=== PATIENT | female | born 1995 | race Caucasian/White ===

== ENCOUNTER 2020-07-19 07:56 | Inpatient (IN) | payer MEDICAID ==
[2020-07-19] MEDS ORDERED: RINGERS SOLUTION,LACTATED 1,000 ML IV ONE (08:32)
[2020-07-19 09:01] LABS: APPEARANCE,URINE CLEAR; BILIRUBIN,URINE NEGATIVE (NEGATIVE); COLOR,URINE YELLOW; GLUCOSE, URINE NEGATIVE (NEGATIVE); KETONES,URINE NEGATIVE (NEGATIVE); LEUKOCYTE ESTERASE,URINE NEGATIVE (NEGATIVE); NITRITE,URINE NEGATIVE (NEGATIVE); PROTEIN,URINE 100 mg/dL (NEGATIVE); UROBILINOGEN,URINE NEGATIVE mg/dL (<2.0)
[2020-07-19] MEDS: RINGERS SOLUTION,LACTATED 1,000 ML IV PRN ×2 (09:09→13:08)
[2020-07-19 09:19] LABS: URINE AMPHETAMINES SCREEN NEGATIVE; URINE BARBITURATES SCREEN NEGATIVE; URINE BENZODIAZEPINES SCREEN NEGATIVE; URINE COCAINE SCREEN NEGATIVE; URINE MARIJUANA (THC) SCREEN NEGATIVE; URINE METHADONE SCREEN NEGATIVE; URINE PHENCYCLIDINE SCREEN NEGATIVE
[2020-07-19] MEDS ORDERED: MISOPROSTOL 0.2 MG TABLET ONE (09:24)
[2020-07-19] MEDS ORDERED: OXYTOCIN/0.9 % SODIUM CHLORIDE 30 UNIT/500 ML RTUINJ ONE (09:24)
[2020-07-19] MEDS ORDERED: OXYTOCIN 10 UNIT/ML VIAL ONE (09:24)
[2020-07-19] MEDS ORDERED: ONDANSETRON HCL INJ/PF 4 MG/2 ML SDV ONE ×2 (09:24→16:50)
[2020-07-19 09:58] LABS: ABSOLUTE EOSINOPHILS # (AUTO) 0.1 10^3/uL (0.0-0.6); ABSOLUTE LYMPHOCYTES (AUTO) 1.8 10^3/uL (0.5-4.7); ABSOLUTE MONOCYTES (AUTO) 0.7 10^3/uL (0.1-1.4); BASOPHILS % (AUTO) 0.2 % (0-2); HEMATOCRIT 31.2 % (36.0-47.0); HEMOGLOBIN 10.5 g/dL (12.0-15.5); LYMPHOCYTES % (AUTO) 23.3 % (13-45); MEAN CORPUSCULAR HEMOGLOBIN 24.9 pg (27.0-33.4); MEAN CORPUSCULAR HGB CONC 33.8 g/dL (32.0-36.0); MEAN CORPUSCULAR VOLUME 74 fl (80-97); MONOCYTES % (AUTO) 9.6 % (3-13); PLATELET COUNT 152 10^3/uL (150-450); RED BLOOD COUNT 4.24 10^6/uL (3.72-5.28); RED CELL DISTRIBUTION WIDTH 17.2 % (11.5-14.0); SEGMENTED NEUTROPHILS % (AUTO) 65.9 % (42-78); TOTAL CELLS COUNTED % (AUTO) 100 %; WHITE BLOOD COUNT 7.6 10^3/uL (4.0-10.5)
[2020-07-19] MEDS ORDERED: EPHEDRINE SULFATE INJ 50 MG/1 ML AMPULE ONE (10:19)
[2020-07-19] MEDS ORDERED: ROPIVACAINE HCL 0.2% INJ/PF (2 MG/ML) 20 ML SDV ONE ×2 (10:19→16:45)
[2020-07-19] MEDS ORDERED: FENTANYL/BUPIVACAINE/NS/PF 300 MCG/150 ML RTUINJ EPI ONE (10:19)
--- NOTE | 2020-07-19 11:50 | Admission Physical ---
Datetime Report Generated by CPN: 07/19/2020 11:50 CURRENT ADMISSION Chief Complaint: Uterine Contractions; Suspected Ruptured Membranes Chief Complaint Other: water broke Indication for Induction: Post Dates Admit Impression : Postterm, Intrauterine ; Active Labor Admit Plan: Admit to Unit; Initiate Labor Protocol ALLERGIES Medication Allergies: Yes Medication Allergies: SULFA Latex: No Latex Allergies Food Allergies: n/a Environmental Allergies: n/a OBSTETRICAL HISTORY EDC: 07/15/2020 00:00 : 2 Para: 0 Term: 0 : 0 SAB: 1 IAB: 0 Ectopic: 0 Livin Cesareans: 0 VBACs: 0 Multiple Births: 0 Gestational Diabetes: No Rh Sensitization: No Incompetent Cervix: No RONNIE: No Infertility: No ART Treatment: No Uterine Anomaly: No IUGR: No Hx Previous C/S: No Macrosomia: No Hx Loss/Stillborn: No PIH: No Hx : No Placenta Previa/Abruption: No Depression/PP Depression: No PTL/PROM: No Post Hemorrhage: No Current Procedures: Ultrasound Obstetrical History Comments: G1- SAB G2- current SEE RECORDS Alcohol: No Marijuana : No Cocaine: No Other Illicit Drugs: No Cigarettes: Never Smoker. 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 Heart Disease: No Hosp/Surgery: No Autoimmune Disorder: No Anesthetic Complications: No Kidney Disease: No Abnormal Pap Smear: No Neuro/Epilepsy: No Psychiatric Disorders: No Other Medical Diseases: No Hepatitis/Liver Disease: No Significant Family History: No Varicosities/Phlebitis: No Trauma/Violence : No Thyroid Dysfunction: No Medical History Comments: childhood asthma outgrew age 3 INFECTIOUS HISTORY Gonorrhea: No Genital Herpes: No Chlamydia: No Tuberculosis: No Syphilis: No Hepatitis: No HIV/AIDS Exposure: No Rash or Viral Illness: No HPV: No PHYSICAL EXAM General: Normal HEENT: Deferred Neurologic: Normal Thyroid: Deferred Heart: Normal Lungs: Normal Breast: Deferred Back: Deferred Abdomen: Normal Genitourinary Exam: Normal Extremities: Normal DTRs: Deferred Pelvic Type: Adequate Vital Signs: Reviewed MEMBRANES Membranes: Ruptured FETUS A EGA: 40.4 Monitoring: External US FHR- Baseline: 140 Accelerations: 15X15 Decelerations: None FHR Category: Category I Presentation: Vertex Admit Comment: presented with c/o contractions and leaking fluid SROM at 5am has epidural now, last exam 4cm per RN anticipate PLANS FOR LABOR AND DELIVERY Labor and Delivery: None Pain Management: Epidural Feeding Preference: Formula Benefit of Breast Feed Discussed: Yes Circumcision: Yes INFORMED CONSENT Assignment: Wilber Dutta MD Signature: with User ID: [email or web address] : with User ID: [email or web address]
[2020-07-19] MEDS ORDERED: ACETAMINOPHEN 1,000 MG/100 ML RTUPB IV ONE (16:42)
[2020-07-19] MEDS: IBUPROFEN 800 MG TABLET PO SCH (19:32)
[2020-07-19] MEDS ORDERED: IBUPROFEN 800 MG TABLET ONE (19:36)
[2020-07-19] MEDS ORDERED: PROMETHAZINE HCL INJ 25 MG/1 ML VIAL IV PRN (19:46)
[2020-07-19] MEDS ORDERED: DIBUCAINE 1% OINTMENT 28 GM TP PRN (19:46)
[2020-07-19] MEDS ORDERED: PROMETHAZINE HCL 25 MG SUPP.RECT PR PRN (19:46)
[2020-07-19] MEDS ORDERED: DIPH/PERTUSS(ACELL)/TETANUS VAC/PF 0.5 ML SYR (>=10YO) IM PRN (19:46)
[2020-07-19] MEDS ORDERED: DIPHENHYDRAMINE HCL 25 MG CAPSULE PO PRN (19:46)
[2020-07-19] MEDS ORDERED: PROMETHAZINE HCL 25 MG TABLET PO PRN (19:46)
[2020-07-19] MEDS ORDERED: BENZOCAINE/MENTHOL AEROSOL SPRAY 56 ML TOP PRN (19:46)
[2020-07-19] MEDS ORDERED: PSEUDOEPHEDRINE HCL 30 MG TABLET PO PRN (19:46)
[2020-07-19] MEDS ORDERED: OXYTOCIN/0.9 % SODIUM CHLORIDE 30 UNIT/500 ML RTUINJ IV PRN (19:46)
[2020-07-19] MEDS ORDERED: GLYCERIN/WITCH HAZEL LEAF 1 EACH MED..WIPE TP PRN (19:46)
[2020-07-19] MEDS ORDERED: NA PHOS,M-B/NA PHOS,DI-BA (ADULT) 133 ML ENEMA PR PRN (19:46)
[2020-07-19] MEDS ORDERED: ZOLPIDEM TARTRATE 5 MG TABLET PO PRN (19:46)
[2020-07-19] MEDS ORDERED: ACETAMINOPHEN WITH CODEINE #3 TABLET PO PRN (19:46)
[2020-07-19] MEDS ORDERED: ACETAMINOPHEN 650 MG SUPP.RECT PR PRN (19:46)
[2020-07-19] MEDS ORDERED: MEASLES,MUMPS&RUBELLA VACC/PF 0.5 ML VIAL SUBCUT PRN (19:46)
[2020-07-19] MEDS ORDERED: MAGNESIUM HYDROXIDE SUSP 30 ML UDCUP PO PRN (19:46)
[2020-07-19] MEDS ORDERED: METHYLERGONOVINE MALEATE INJ/PF 0.2 MG/1 ML AMPULE IM ONE (21:10)
[2020-07-19] MEDS ORDERED: METHYLERGONOVINE MALEATE INJ/PF 0.2 MG/1 ML AMPULE ONE (21:15)
[2020-07-19] MEDS ORDERED: PROMETHAZINE HCL INJ 25 MG/1 ML VIAL ONE (21:31)
[2020-07-19] MEDS ORDERED: ACETAMINOPHEN 325 MG TABLET ONE (23:15)
--- NOTE | 2020-07-19 23:25 | Delivery Summary ---
Del Sum A-C Datetime Report Generated by CPN: 07/19/2020 23:24 DELIVERY PERSONNEL DELIVERY PERSONNEL: [id number] Delivery Doctor:: Wilber Dutta MD Labor and Delivery Nurse:: Tesha Lopez RNfoot specialist Nurse:: Sanjuana Theodore RN Nursery Nurse:: Nikki Chen RN Accounting Instructor/PROFESSIONAL SECURITY OFFICER: Mary Trevizo, WORLD LANGUAGE TEACHER MATERNAL INFORMATION Delivery Anesthesia: Epidural Medications After Delivery: Pitocin 30 Units in 500ml NS/D5W; Methergine 0.2mg IM; Cytotec 1000mcg Per Rectum/Vagina Delivery QBL: 250 Maternal Complications: None LABOR SUMMARY EDC: 07/15/2020 00:00 No. Babies in Womb: 1 Attempted: No Labor Anesthesia: Epidural LABOR INFORMATION Reason for Induction: Not Applicable Onset of Labor: 07/19/2020 15:02 Complete Dilatation: 07/19/2020 17:42 Oxytocin: N/A Group B Beta Strep: negative Antibiotics # of Doses: 0 Name of Antibiotic Given: n/a Steroids Given: None Reason Steroids Not Administered: Not Applicable MEMBRANES Membranes Rupture Method: Spontaneous Rupture of Membranes: 07/19/2020 05:00 Length of Rupture (hr): 14.47 Amniotic Fluid Color: Clear Amniotic Fluid Amount: None Amniotic Fluid Odor: Normal STAGES OF LABOR Stage 1 hr: 2 Stage 1 min: 40 Stage 2 hr: 1 Stage 2 min: 46 Stage 3 hr: 0 Stage 3 min: 4 Total Time in Labor hr: 4 Total Time in Labor min: 30 VAGINAL DELIVERY Episiotomy: None Laceration #1: Perineal Laceration Extension #1: First Degree Laceration Repair: Yes Laceration Repair Note: repaired with 2-0 vicvryy Sponge Count Correct: Yes Sharps Count Correct: Yes CSECTION DELIVERY Primary Indication: N/A Secondary Indication: N/A CSection Incidence: N/A Labor: N/A Elective: N/A CSection Incision: N/A BABY A INFORMATION Infant Delivery Date/Time: 07/19/2020 19:28 Method of Delivery: Vaginal Nurse Controlled Delivery: No Born in Route : No : N/A Forceps: N/A Vacuum Extraction: Successful Shoulder Dystocia : No ASSISTED DELIVERY BABY A Catheter Prior to Procedure: Yes Vacuum Number of Pulls: 3 Vacuum Number of PopOffs: 0 Reduce Pressure btwn Ctx: Yes Vacuum Alligator Shear Operator: kiwi Vacuum/Forceps Comment: three pulls over three contractions with no pop offs PRESENTATION/POSITION BABY A Presentation: Cephalic Cephalic Presentation: Vertex Vertex Position: Right Occipital Anterior Breech Presentation: N/A PLACENTA INFORMATION BABY A Placenta Delivery Time : 07/19/2020 19:32 Placenta Method of Delivery: Spontaneous Placenta Status: Delivered SCORES BABY A Heart Rate 1 min: >100 bpm Resp Effort 1 min: Good Cry Reflex Irritability 1 min: Cough or Sneeze or Pulls Away Muscle Tone 1 min: Active Motion Color 1 min: Blue/Pale Resuscitation Effort 1 min: Tactile Stimulation SCORE 1 MIN: 8 Heart Rate 5 min: >100 bpm Resp Effort 5 min: Good Cry Reflex Irritability 5 min: Cough or Sneeze or Pulls Away Muscle Tone 5 min: Active Motion Color 5 min: Body [place], Extremities Blue SCORE 5 MIN: 9 INFORMATION BABY A Gestational Age at Delivery: 40.4 Gestational Status: Full Term- 39- 40.6 Weeks Infant Outcome : Liveborn Condition : Stable Infant Sex: Male IDENTIFICATION BABY A Infant Verification Date/Time: 07/19/2020 20:20 ID Band Number: [id number] Mother's Name Verified: Yes Infant RN Verifying : M April RN/D Bellavance RN WEIGHT/LENGTH BABY A Infant Birthweight (gm): 3922 Weight (lb): 8 Weight (oz): 10 Infant Length (in): 21.50 Infant Length (cm): 54.61 CORD INFORMATION BABY A No. Cord Vessels: 3 Nuchal Cord : N/A Cord Blood Taken: Yes-For Eval (Mom's Blood Type - or O+) Suction: Mouth; Nose ASSESSMENT BABY A Complications: None Physical Findings at Delivery: Within Normal Limits Skin to Skin: Yes Skin to Skin Time (min): 60 Transferred To: Remains with Mother BABY B INFORMATION : N/A SIGNATURES Signature: with User ID: [email or web address] : I was personally available for consultation and serving as supervising physician for the P.
--- NOTE | 2020-07-19 23:25 | Birth Certificate Data ---
Cert Data Datetime Report Generated by CPN: 07/19/2020 23:24 CERTIFICATE DATA 47a. Care: Yes (07/19/2020 08:23:Tesha Lopez RN) 47b. Date of First Visit: 12/12/2003 00:00 (07/19/2020 08:23:Tesha Lopez RN) 47c. Date of Last Visit: 07/17/2020 00:00 (07/19/2020 08:23:Tesha Lopez RN) 47d. Number of Visits: 11 (07/19/2020 08:23:Tesha Lopez RN) 48a. Number of Prev Live Births: 0 (07/19/2020 08:23:Tesha Lopez RN) 48b. Now Livin (07/19/2020 08:23:Tesha Lopez RN) 48c. Live Births Now : 0 (07/19/2020 08:23:QS system process) 48e. Losses: 1 (07/19/2020 08:23:Tesha Lopez RN) 48f. Date of Last Preg Loss: 05/10/2019 00:00 (07/19/2020 08:23:Tesha Lopez RN) RISK FACTORS IN THIS 49a. Diabetes: No (07/19/2020 08:23:Tesha Lopez RN) 49b. Hypertension: No (07/19/2020 08:23:Tesha Lopez RN) 49c. Previous Births: 0 (07/19/2020 08:23:Tesha Lopez RN) 49d. Stillborns: No (07/19/2020 08:23:Tesha Lopez RN) 49d. IUGR: No (07/19/2020 08:23:Tesha Lopez RN) 49e. Infertility Treatment: No (07/19/2020 08:23:Tesha Lopez RN) 49f. Previous Cesareans: 0 (07/19/2020 08:23:Tesha Lopez RN) Mother's Height 50b. Height Inches: 64 (07/19/2020 22:31:QS system process) Mother's Weight 51a. Pre- Weight (lbs): 118 (07/19/2020 08:23:Tesha Lopez RN) 51b. Weight at Delivery (lbs): 150 (07/19/2020 22:31:QS system process) 52. Dt Last Normal Menses Began: 10/09/2019 00:00 (07/19/2020 08:23:Tesha Lopez RN) Infections Present/Treated 53a. Gonorrhea: No (07/19/2020 08:23:Tesha Lopez RN) Results this Hospital Visit : Negative (07/19/2020 08:23:Tesha Lopez RN) 53b. Syphilis: No (07/19/2020 08:23:Tesha Lopez RN) 53c. Chlamydia: No (07/19/2020 08:23:Tesha Lopez RN) Results this Hospital Visit: Negative (07/19/2020 08:23:Tesha Lopez RN) 53d. Hepatitis B: No (07/19/2020 08:23:Tesha Lopez RN) Results this Hospital Visit: Negative (07/19/2020 08:23:Tesha Lopez RN) 53e. Hepatitis C: Negative (07/19/2020 08:23:Tesha Lopez RN) 53h. Mother Tested for HBsAG: Yes (07/19/2020 08:23:Tesha Lopez RN) 53i. Date Tested: 01/22/2020 00:00 (07/19/2020 08:23:Tesha Lopez RN) 53j. Test Result: Negative (07/19/2020 08:23:Tesha Lopez RN) Obstetric Procedures 54a, b, c. Obstetric Procedures: Ultrasound (07/19/2020 08:23:Tesha Lopez RN) Cigarette Smoking Cigarette Smoking: Never Smoker. [id number] (07/19/2020 08:23:Tesha Lopez RN) Onset of Labor 56a. PROM >12 Hrs: 14.47 (07/19/2020 09:35:QS system process) 56b. Precipitous Labor <3 Hrs: 4 (07/19/2020 08:23:QS system process) 56c. Prolonged Labor > 20 Hrs: 4 (07/19/2020 08:23:QS system process) 57a. Induction of Labor: N/A (07/19/2020 08:23:Tesha Lopez RN) 57c. Non-Vertex Presentation A: Vertex (07/19/2020 08:23:ESTELLA Garcia) 57d. Steroids - Lung Mat: None (07/19/2020 08:23:Tesha Lopez RN) 57d. Steroids - Lung Mat: Not Applicable (07/19/2020 08:23:Tesha Lopez RN) 57f. Mat [place] or Temp >100.4: 100.7 (07/19/2020 08:23:ESTELLA Garcia) 57g. Moderate/Heavy Meconium: Clear (07/19/2020 09:35:Tesha Lopez RN) 57h. Intolerance of Labor: N/A (07/19/2020 08:23:ESTELLA Garcia) : N/A (07/19/2020 08:23:Sanjuana Theodore RN) 57i. Epidural/Spinal Anesthesia: Epidural (07/19/2020 08:23:Tesha Lopez, RN) Method of Delivery 58a. Forceps - Unsuccessful A: N/A (07/19/2020 08:23:Fide Bellavance, RNC) 58b. Vacuum - Unsuccessful A: Successful (07/19/2020 08:23:Fide Bellavance, RNC) 58c. Presentation at 58c. Presentation at - A : Vertex (07/19/2020 08:23:Fide Bellavance, RNC) 58c. Presentation at - A : N/A (07/19/2020 08:23:Fide Bellavance, RNC) 58c. Presentation at - A : Cephalic (07/19/2020 08:23:Fide Bellavance, RNC) Final Route and Method of Del 58d. Baby A Route/Delivery: Vaginal (07/19/2020 19:28:Nadege Vargas RN) 58e. Trial of Labor Attempted: No (07/19/2020 08:23:Tesha Lopez RN) 58e. Trial of Labor Attempted A: N/A (07/19/2020 08:23:Tesha Lopez RN) 58e. Trial of Labor Attempted B: N/A (07/19/2020 08:23:Tesha Lopez RN) Maternal Morbidity 59b. 3rd or 4th Degree Lacs: Perineal (07/19/2020 08:23:Wilber Dutta MD ([facility])) Birthweight Baby A: 3922 (07/19/2020 08:23:Sanjuana Theodore RN) 60a. Pounds : 8 (07/19/2020 08:23:QS system process) 60b. Ounces: 10 (07/19/2020 08:23:QS system process) 61. GA at Delivery Baby A: 40.4 (07/19/2020 08:23:Tesha Lopez RN) : Full Term- 39- 40.6 Weeks (07/19/2020 08:23:QS system process) 62a. 5 Minute Baby A: 9 (07/19/2020 08:23:QS system process)
[2020-07-19] MEDS ORDERED: ACETAMINOPHEN 325 MG TABLET PO PRN (23:51)
[2020-07-20] MEDS: METHYLERGONOVINE MALEATE 0.2 MG TABLET PO SCH ×4 (00:18→18:03)
[2020-07-20] MEDS: FAMOTIDINE 20 MG TABLET PO SCH ×3 (01:31→22:38)
[2020-07-20] MEDS: IBUPROFEN 800 MG TABLET PO SCH ×3 (05:31→22:38)
[2020-07-20 08:21] LABS: HEMATOCRIT 24.1 % (36.0-47.0); MEAN CORPUSCULAR HEMOGLOBIN 24.7 pg (27.0-33.4); MEAN CORPUSCULAR HGB CONC 33.8 g/dL (32.0-36.0); MEAN CORPUSCULAR VOLUME 73 fl (80-97); PLATELET COUNT 115 10^3/uL (150-450); RED BLOOD COUNT 3.29 10^6/uL (3.72-5.28); RED CELL DISTRIBUTION WIDTH 17.6 % (11.5-14.0)
[2020-07-20] MEDS: DOCUSATE SODIUM 100 MG CAPSULE PO SCH ×2 (09:14→18:03)
[2020-07-20] MEDS: FERROUS SULFATE 325 MG TABLET PO SCH ×2 (09:14→18:03)
[2020-07-20] MEDS: SENNOSIDES/DOCUSATE 8.6-50 MG 1 EACH TABLET PO SCH (09:14)
[2020-07-20] MEDS: PRENATAL VITAMIN W DHA CAPSULE PO SCH (09:14)
[2020-07-20 09:37] LABS: WHITE BLOOD COUNT 20.4 10^3/uL (4.0-10.5)
--- NOTE | 2020-07-20 09:40 | PDOC PROGRESS REPORT ---
Subjective-OB Progress Note for:: 07/20/20 - PP day #1, pt doing well, denies heavy vaginal bleeding this morning, Hx PPH after delivery. A- /A-, rubella immune. bottlefeeding, Physical Exam (OB) Vital Signs: Temp Pulse Resp BP Pulse Ox 99.2 F 72 17 131/88 H 98 07/20/20 07:38 07/20/20 07:38 07/20/20 07:38 07/20/20 07:38 07/20/20 07:38 Intake & Output 07/19/20 07/20/20 07/21/20 06:59 06:59 06:59 Intake Total 1498 Output Total 250 Balance 1248 Weight 67.8 kg - General General Appearance: Appears well, Alert - PIH/Pre-Eclampsia DTR's: 2 + Clonus: Negative Headache: Absent Epigastric Pain: No Visual Changes: No - Maternal Morbidity 59. Maternal Morbidity (serious complications experinced by the mother associated with labor and delivery: None of the above - Lochia Lochia Amount: Scant < 10 ml Lochia Color: Rubra/Red - Abdomen Description: Soft, Flat Fundal Description: Firm Fundal Height: u/u - u/2 - Respiratory Respiratory Status: No respiratory distress - Abdominal Distension: No distension Tenderness: Nontender - Genitourinary Genitourinary Note: voiding - Extremities Upper extremity: Normal inspection Lower extremities: Normal inspection - Neurological Cognition: Normal Orientation: AAOx4 - Psychological Associated symptoms: Normal affect, Normal mood - Skin Skin Temperature: Warm Skin Moisture: Dry Objective-Diagnostic Laboratory: 07/19/20 07/19/20 09:39 09:39 WBC 7.6 RBC 4.24 Hgb 10.5 L Hct 31.2 L MCV 74 L MCH 24.9 L MCHC 33.8 RDW 17.2 H Plt Count 152 Seg Neutrophils % 65.9 Blood Type A NEGATIVE Antibody Screen NEGATIVE Assessment and Plan(PN) - Assessment and Plan (1) (normal spontaneous vaginal delivery) Is this a current diagnosis for this admission?: Yes (2) PPH ( hemorrhage) Qualifiers: hemorrhage type: delayed hemorrhage Qualified Code(s): O72.2 - Delayed and secondary hemorrhage Is this a current diagnosis for this admission?: Yes (3) Full-term PROM with onset of labor within 24 hours of rupture Is this a current diagnosis for this admission?: Yes Plan:: Watch temp today. CBC pending this morning. Ambulation encouraged. - Time Spent with Patient Time with patient: Less than 15 minutes Medications reviewed and adjusted accordingly: Yes - Disposition Anticipated Discharge Disposition: Home, Self Care Anticipated Discharge Timeframe: within 24 hours
[2020-07-20 09:49] LABS: HEMOGLOBIN 8.1 g/dL (12.0-15.5)
[2020-07-20] MEDS ORDERED: (PENDING PHARMACY ID) (Prenatal Vit,Calc76/Iron/Folic [Prenatabs Rx Tablet] 1 TAB) PO SCH (10:00)
[2020-07-20] MEDS ORDERED: AMPICILLIN SOD/SULBACTAM 3 GM VIAL IV SCH (10:15)
[2020-07-20] MEDS ORDERED: IRON SUCROSE COMPLEX INJ/PF 100 MG/5 ML SDV IV ONE (10:30)
[2020-07-20] MEDS ORDERED: DIPH/PERTUSS(ACELL)/TETANUS VAC/PF 0.5 ML SYR (>=10YO) IM PRN (12:30)
[2020-07-20] MEDS ORDERED: PROMETHAZINE HCL INJ 25 MG/1 ML VIAL IV PRN (12:30)
[2020-07-20] MEDS ORDERED: MEASLES,MUMPS&RUBELLA VACC/PF 0.5 ML VIAL SUBCUT PRN (12:30)
[2020-07-20] MEDS: AMPICILLIN SODIUM/SULBACTAM NA 3 GM in NORMAL SALINE 100 ML IV SCH ×2 (12:37→18:04)
[2020-07-21] MEDS: AMPICILLIN SODIUM/SULBACTAM NA 3 GM in NORMAL SALINE 100 ML IV SCH ×2 (00:52→06:37)
[2020-07-21] MEDS: METHYLERGONOVINE MALEATE 0.2 MG TABLET PO SCH (02:13)
[2020-07-21] MEDS: IBUPROFEN 800 MG TABLET PO SCH ×2 (06:36→15:03)
[2020-07-21] MEDS: FAMOTIDINE 20 MG TABLET PO SCH (10:27)
[2020-07-21] MEDS: PRENATAL VITAMIN W DHA CAPSULE PO SCH (10:27)
[2020-07-21] MEDS: FERROUS SULFATE 325 MG TABLET PO SCH ×2 (10:27→17:15)
[2020-07-21] MEDS: SENNOSIDES/DOCUSATE 8.6-50 MG 1 EACH TABLET PO SCH (10:27)
[2020-07-21] MEDS: DOCUSATE SODIUM 100 MG CAPSULE PO SCH ×2 (10:27→17:15)
[2020-07-21 11:40] LABS: ABSOLUTE EOSINOPHILS # (AUTO) 0.2 10^3/uL (0.0-0.6); ABSOLUTE LYMPHOCYTES (AUTO) 1.7 10^3/uL (0.5-4.7); ABSOLUTE MONOCYTES (AUTO) 0.8 10^3/uL (0.1-1.4); ABSOLUTE NEUT (AUTO) 12.3 10^3/uL (1.7-8.2); BASOPHILS % (AUTO) 0.3 % (0-2); EOSINOPHILS % (AUTO) 1.5 % (0-6); HEMATOCRIT 21.5 % (36.0-47.0); LYMPHOCYTES % (AUTO) 11.1 % (13-45); MEAN CORPUSCULAR HGB CONC 34.2 g/dL (32.0-36.0); MEAN CORPUSCULAR VOLUME 73 fl (80-97); MONOCYTES % (AUTO) 5.3 % (3-13); PLATELET COUNT 133 10^3/uL (150-450); RED BLOOD COUNT 2.93 10^6/uL (3.72-5.28); RED CELL DISTRIBUTION WIDTH 17.8 % (11.5-14.0); SEGMENTED NEUTROPHILS % (AUTO) 81.8 % (42-78); TOTAL CELLS COUNTED % (AUTO) 100 %
[2020-07-21 11:59] LABS: HEMOGLOBIN 7.3 g/dL (12.0-15.5)
--- NOTE | 2020-07-21 13:09 | PDOC DISCHARGE SUMMARY ---
Impression - Admit/DC Date/PCP Admission Date/Primary Care Provider: 07/19/20 08:33 JACI LINARES MD Discharge Date: 07/21/20 - Discharge Diagnosis (1) Vacuum extraction, delivered, current hospitalization Is this a current diagnosis for this admission?: Yes (2) PPH ( hemorrhage) Is this a current diagnosis for this admission?: Yes - Additional Information Discharge Diet: Regular Discharge Activity: Balance Activity w/Rest, Pelvic Rest Referrals: JACI LINARES MD [Primary Care Provider] - Prescriptions: Ferrous Sulfate [Feosol 325 mg Tablet] 325 mg PO BID #60 tablet Ibuprofen [Motrin 800 mg Tablet] 800 mg PO Q8HP PRN #60 tablet PRN Reason: Home Medications: Omeprazole Magnesium [Prilosec Otc] 1 tab PO PRN PRN 07/19/20 Vit,Calc76/Iron/Folic [Prenatabs Rx Tablet] 1 tab PO DAILY 07/19/20 Ferrous Sulfate [Feosol 325 mg Tablet] 325 mg PO BID #60 tablet 07/21/20 Ibuprofen [Motrin 800 mg Tablet] 800 mg PO Q8HP PRN #60 tablet 07/21/20 Hospital Course 59. Maternal Morbidity (serious complications experinced by the mother associated with labor and delivery: None of the above Results Laboratory Results: WBC 15.0 10^3/uL (4.0-10.5) H 07/21/20 11: RBC 2.93 10^6/uL (3.72-5.28) L 07/21/20 11:20 Hgb 7.3 g/dL (12.0-15.5) L 07/21/20 11: Hct 21.5 % (36.0-47.0) L 07/21/20 11:20 MCV 73 fl (80-97) L 07/21/20 11:20 MCH 25.0 pg (27.0-33.4) L 07/21/20 11:20 MCHC 34.2 g/dL (32.0-36.0) 07/21/20 11:20 RDW 17.8 % (11.5-14.0) H 07/21/20 11:20 Plt Count 133 10^3/uL (150-450) L 07/21/20 11: Lymph % (Auto) 11.1 % (13-45) L 07/21/20 11:20 [place] % (Auto) 5.3 % (3-13) 07/21/20 11:20 Eos % (Auto) 1.5 % (0-6) 07/21/20 11:20 Baso % (Auto) 0.3 % (0-2) 07/21/20 11:20 Absolute Neuts (auto) 12.3 10^3/uL (1.7-8.2) H 07/21/20 11:20 Absolute Lymphs (auto) 1.7 10^3/uL (0.5-4.7) 07/21/20 11:20 Absolute Monos (auto) 0.8 10^3/uL (0.1-1.4) 07/21/20 11:20 Absolute Eos (auto) 0.2 10^3/uL (0.0-0.6) 07/21/20 11:20 Absolute Basos (auto) 0.0 10^3/uL (0.0-0.2) 07/21/20 11:20 Seg Neutrophils % 81.8 % (42-78) H 07/21/20 11:20 Urine Color YELLOW 07/19/20 08:06 Urine Appearance CLEAR 07/19/20 08:06 Urine pH 6.0 (5.0-9.0) 07/19/20 08:06 Ur Specific [place] 1.010 07/19/20 08:06 Urine Protein 100 mg/dL (NEGATIVE) H 07/19/20 08:06 Urine Glucose (UA) NEGATIVE mg/dL (NEGATIVE) 07/19/20 08:06 Urine Ketones NEGATIVE mg/dL (NEGATIVE) 07/19/20 08:06 Urine Blood NEGATIVE (NEGATIVE) 07/19/20 08:06 Urine Nitrite NEGATIVE (NEGATIVE) 07/19/20 08:06 Urine Bilirubin NEGATIVE (NEGATIVE) 07/19/20 08:06 Urine Urobilinogen NEGATIVE mg/dL (<2.0) 07/19/20 08:06 Ur Leukocyte Esterase NEGATIVE (NEGATIVE) 07/19/20 08:06 Urine Ascorbic Acid NEGATIVE (NEGATIVE) 07/19/20 08:06 Urine Opiates Screen NEGATIVE 07/19/20 08:06 Urine Methadone Screen NEGATIVE 07/19/20 08:06 Ur Barbiturates Screen NEGATIVE 07/19/20 08:06 Ur Phencyclidine Scrn NEGATIVE 07/19/20 08:06 Ur Amphetamines Screen NEGATIVE 07/19/20 08:06 U Benzodiazepines Scrn NEGATIVE 07/19/20 08:06 Urine Cocaine Screen NEGATIVE 07/19/20 08:06 U Marijuana (THC) Screen NEGATIVE 07/19/20 08:06 RPR NONREACTIVE (NONREACTIVE) 07/19/20 09:39 Blood Type A NEGATIVE 07/19/20 09:39 Antibody Screen NEGATIVE 07/19/20 09:39 Plan Plan of Treatment: follow up in 4 weeks at [facility] for post check
[2020-07-21 17:43] VITALS: BP 133/81
== END 2020-07-21 18:35 | disposition home or self-care (01) | DRG 806 ==
LOC: LC 07:56 → LR 08:33 → 2S 22:15
PROVIDERS: ADMIT Obstetrics & Gynecology Gynecology; ATTEND Obstetrics & Gynecology Gynecology
PROC: 10D07Z6 Extraction of Products of Conception, Vacuum, Via Natural or Artificial Opening (ICD-10-PCS; principal; 2020-07-19)
PROC: 0HQ9XZZ Repair Perineum Skin, External Approach (ICD-10-PCS; 2020-07-19)
DX: O48.0 Post-term pregnancy (principal); O72.2 Delayed and secondary postpartum hemorrhage; Z37.0 Single live birth; O70.0 First degree perineal laceration during delivery; Z3A.40 40 weeks gestation of pregnancy
CPT/HCPCS: 1967; 36415; 80307; 81005; 85025; 85027; 86592; 86850; 86900; 86901; J0131; J0295; J1756; J2210; J2405; J2550; J2590; J2795; J3010; J3490; J7050